=== PATIENT | male | born 1970 | race Caucasian/White ===

== ENCOUNTER 2024-01-27 21:56 | Observation (INO) | payer OTHER, SELFPAY ==
[2024-01-27 22:03] VITALS: BP 178/117; PULSE 88; RESP 22; TEMP 36.2; O2SAT 97; BMI 29.5
[2024-01-27 22:08] VITALS: PULSE 86; O2SAT 96
[2024-01-27 22:26] LABS: Add Manual Diff / Slide Review NO; Basophils Absolute Auto 100 /uL (0-100); Eosinophils Absolute Auto 200 /uL (0-450); Hematocrit 46.3 % (41-53); Hemoglobin 15.8 g/dL (13.5-17.5); Lymphocytes Absolute Auto 3500 /uL (1100-4500); Lymphocytes Percent Auto 37.4 % (25-40); Mean Corpuscular HGB Conc 34.2 % (30-36); Mean Corpuscular Hemoglobin 29.5 PG (26-34); Mean Corpuscular Volume 86.3 fL (80-100); Monocytes Absolute Auto 400 /uL (0-900); Monocytes Percent Auto 3.8 % (3-14); Neutrophils Absolute Auto 5200 /uL (1500-7000); Neutrophils Percent Auto 55.8 % (50-75); Platelet Count 262 X10^3/uL (150-400); Red Blood Cell Count 5.36 X10^6/uL (4.5-5.9); Red Cell Distribution Width 14.3 % (11.6-14.8); White Blood Cell Count 9.4 X10^3/uL (4.5-11.0)
[2024-01-27 22:30] VITALS: PULSE 83; RESP 18; O2SAT 97
[2024-01-27 22:30] LABS: Alanine Aminotransferase 69 IU/L (<50); Albumin Globulin Ratio 1.4 (1.0-2.8); Alkaline Phosphatase 90 U/L (38-126); Aspartate Aminotransferase 102 IU/L (17-59); BUN Creatinine Ratio 21.6 (6-22); Bilirubin Total 0.8 mg/dL (0.2-1.3); Blood Urea Nitrogen 24 mg/dL (9-20); Calcium 9.7 mg/dL (8.4-10.2); Carbon Dioxide 24 mmol/L (22-32); Chloride 108 mmol/L (98-107); Estimated Glomerular Filt Rate > 60 mL/min (>60); Globulin 3.5 g/dL (1.7-4.1); Glucose 151 mg/dL (70-100); HEMOLYSIS 17 (0-50); Lipase 96 U/L (23-300); Potassium 4.5 mmol/L (3.4-5.1); Sodium 140 mmol/L (137-145); Total Protein 8.5 g/dL (6.3-8.2)
--- NOTE | 2024-01-27 22:43 | ED.GENADULT ---
HPI - General Adult General Chief complaint: Abdominal Pain Stated complaint: jonna ku attack Time Seen by Provider: 01/27/24 22:43 Source: patient Mode of arrival: Ambulatory History of Present Illness HPI narrative: 53-year-old gentleman with no significant medical history presents with severe right upper quadrant pain. He notes over the last week he has had a couple of episodes of similar right upper quadrant pain lasting for only a few minutes and resolving. This evening, around 8:00 p.m. they went out for yogurt shortly thereafter he began developing right upper abdominal pain that is progressively gotten worse. Associated with an episode of vomiting. He has not recently had fevers, chest pain, headaches, palpitations, diarrhea. Related Data Home Medications Medication Instructions Recorded Confirmed aspirin 81 mg tablet,delayed ##0 10/10/17 12/29/23 release naproxen 500 mg tablet (Naprosyn) ##0 10/10/17 12/29/23 Previous Rx's Medication Instructions Recorded hydrocodone 5 mg-acetaminophen 325 1 tab PO Q6HP PRN #10 tabs 10/10/17 mg tablet ([place]) ondansetron 4 mg disintegrating 4 mg sublingual Q6HP PRN ##10 10/10/17 tablet (Zofran ODT) Allergies Allergy/AdvReac Type Severity Reaction Status Date / Time No Known Drug Allergies Allergy Unverified 12/29/23 12:01 Review of Systems Review of Systems Narrative: Pertinent positive and negative findings as per HPI Patient History Social History Smoking Status: Unknown if ever smoked Smoking Status: Unknown if ever smoked alcohol intake frequency: holidays/special occasions only Substance Use Type: does not use Exam Initial Vital Signs Initial Vital Signs: Vital Signs Temperature 97.1 F L 01/27/24 22:03 Pulse Rate 88 01/27/24 22:03 Respiratory Rate 22 01/27/24 22:03 Blood Pressure 178/117 H 01/27/24 22:03 Pulse Oximetry 97 01/27/24 22:03 Oxygen Delivery Method Room Air 01/27/24 22:03 General: Appears uncomfortable but Able to give a complete and coherent history. Well-nourished well-developed HEENT: Moist mucous membranes, normal sclera with reactive pupils, Respiratory: Lungs are clear to auscultation, no wheezing no rales no rhonchi. Full and symmetrical air movement Cardiac: Regular rate and rhythm no murmurs no bruits Abdomen: Soft, tenderness in the right upper quadrant without rebound or guarding. No flank pain. Skin: Warm and dry, no rashes Neurologic: Grossly neurologically intact with no obvious asymmetries or abnormalities Extremities: No trauma, well perfused Psych: Cooperative, appropriate insight and affect Course Orders Ordered: ED Orders 01/27/24 22:05 EKG-12 Lead Stat 01/27/24 22:09 Complete Blood Count AUTO DIFF Stat Comprehensive Metabolic Panel Stat Lipase Stat 01/27/24 22:44 US abdomen limited Stat Ondansetron HCl (Ondansetron 4 Mg Odt) 4 mg PO NOW PRN PRN Reason: Nausea And Vomiting Ondansetron HCl (Ondansetron 4 Mg/2 Ml Inj) 4 mg IV NOW PRN PRN Reason: Nausea And Vomiting Vital Signs Vital signs: Vital Signs - 8 hr 01/27/24 22:03 01/27/24 22:08 01/27/24 22:30 Temperature 97.1 F L Pulse Rate 88 86 83 Respiratory Rate 22 18 Blood Pressure 178/117 H Pulse Oximetry 97 96 97 Oxygen Delivery Method Room Air Medical Decision Making Lab Data 01/27/24 22:09 01/27/24 22:09 Labs: Lab Results 01/27/24 Range/Units 22:09 WBC 9.4 (4.5-11.0) X10^3/uL RBC 5.36 (4.5-5.9) X10^6/uL Hgb 15.8 (13.5-17.5) g/dL Hct 46.3 (41-53) % MCV 86.3 (80-100) fL MCH 29.5 (26-34) PG MCHC 34.2 (30-36) % RDW 14.3 (11.6-14.8) % Plt Count 262 (150-400) X10^3/uL Neut % (Auto) 55.8 (50-75) % Lymph % (Auto) 37.4 (25-40) % [place] % (Auto) 3.8 (3-14) % Eos % (Auto) 2.0 (2-4) % Baso % (Auto) 1.0 (0-2) % Neut # (Auto) 5200 (7338-5959) /uL Lymph # (Auto) 3500 (7586-0524) /uL [place] # (Auto) 400 (0-900) /uL Eos # (Auto) 200 (0-450) /uL Baso # (Auto) 100 (0-100) /uL Sodium 140 (137-145) mmol/L Potassium 4.5 (3.4-5.1) mmol/L Chloride 108 H (98-107) mmol/L Carbon Dioxide 24 (22-32) mmol/L BUN 24 H (9-20) mg/dL Creatinine 1.11 (0.66-1.25) mg/dL Estimated GFR > 60 (>60) mL/min BUN/Creatinine Ratio 21.6 (6-22) Glucose 151 H (70-100) mg/dL Calcium 9.7 (8.4-10.2) mg/dL Total Bilirubin 0.8 (0.2-1.3) mg/dL AST 102 H (17-59) IU/L ALT 69 H (<50) IU/L Alkaline Phosphatase 90 (38-126) U/L Total Protein 8.5 H (6.3-8.2) g/dL Albumin 5.0 (3.5-5.0) g/dL Globulin 3.5 (1.7-4.1) g/dL Albumin/Globulin Ratio 1.4 (1.0-2.8) Lipase 96 (23-300) U/L Urine Dip Bedside Urine Glucose Negative Bedside Urine Bilirubin - Negative Bedside Urine Ketone - Negative Urine Specific [place] 1.03 Bedside Urine Occult Blood - Negative Bedside Urine pH 5.5 Bedside Urine Protein - Negative Bedside Urine Urobilinogen - Negative Bedside Urine Nitrite - Negative Bedside Urine Leukocytes - Negative Esterase Point of care testing: Urine Dip Bedside Urine Glucose Negative Bedside Urine Bilirubin - Negative Bedside Urine Ketone - Negative Urine Specific [place] 1.03 Bedside Urine Occult Blood - Negative Bedside Urine pH 5.5 Bedside Urine Protein - Negative Bedside Urine Urobilinogen - Negative Bedside Urine Nitrite - Negative Bedside Urine Leukocytes - Negative Esterase MDM Narrative Medical decision making narrative: CC: Right upper quadrant pain since 8:00 p.m. tonight Complicating co-morbidities: No diagnosed medical issues Data collected from: patient, Social determinants of health that may influence the patients condition: Currently trying to establish care with a primary care physician Differential considered: Gallstones, cholecystitis, pancreatitis, gastritis, duodenal ulcer Exam documented above, pertinent findings include: Right upper quadrant tenderness without rebound or guarding Lab Test results independently reviewed as above. Pertinent findings: CBC is unremarkable, no leukocytosis nor anemia Chemistries are relatively reassuring. Glucose slightly elevated 151. Mild elevation to AST at 102, ALT at 69. No prior labs are available for comparison. Bilirubin and alk-phos are within normal limits Independently reviewed EKG: Sinus rhythm at a rate of 88. No acute ischemic changes. Normal intervals, normal axis Imaging studies independently reviewed: Abdominal ultrasound preliminary report indicates 3 gallstones wedged in the gallbladder neck without thickened gallbladder wall or cholecystic fluid. Ducts are not dilated Consultations: Discussion with Dr. Todd, general surgery Treatments: Fluids, Dilaudid, Zofran. No evidence of infection at this time. Antibiotics are not initiated Discussion: 53-year-old gentleman with progressive gallbladder colic over the course of the week now with impacted gallstones in the neck of the gallbladder without acute cholecystitis but with increasing pain. We will be admitted to Dr. Todd's service with anticipation of surgical intervention in the morning. Findings reviewed with the patient, questions are answered, he is safe for transfer to the floor Discharge Plan Departure Patient Disposition: Home Clinical Impression: Impacted gallstone of gallbladder Admit Date/Time: 01/28/24 00:06 Admit Provider: Leslie Todd
--- NOTE | 2024-01-27 22:44 | DI.US.S_ITS ---
PROCEDURE: US ABDOMEN LIMITED INDICATIONS: RUQ pain, ? cholycystitis TECHNIQUE: Real-time scanning was performed of the abdominal and retroperitoneal organs, with image documentation. COMPARISON: None. FINDINGS: Liver: Measures 19.7 cm in length. Increased in echogenicity. Gallbladder: Not significantly dilated. Multiple gallstones near the neck. A larger stone measuring 1 cm. Normal gallbladder wall thickness measuring 2 mm. No pericholecystic fluid. Positive sonographic Herrera's sign reported. Biliary ducts: Intrahepatic bile ducts are non-dilated. Common hepatic duct measures 5 mm. CBD is not well seen. Normal is 6-7 mm or less in diameter, or 10 mm or less post-cholecystectomy. Pancreas: Not well seen due to overlying bowel gas. IMPRESSION: 1. Positive sonographic Herrera's sign reported. Multiple gallstones. However, no pericholecystic fluid or gallbladder wall thickening is demonstrated. Findings indeterminate for acute cholecystitis. CT or HIDA scan could be considered for further evaluation. 2. Increased hepatic echogenicity most consistent with hepatic steatosis. Other forms of hepatocellular disease could have similar appearance. Prominent liver size. Dictated by: Cristino Bunn M.D. on 01/28/2024 at 0:46 Approved by: Cristino Bunn M.D. on 01/28/2024 at 0:48
[2024-01-27 23:00] VITALS: PULSE 77; RESP 20; O2SAT 96
[2024-01-27 23:30] VITALS: PULSE 74; RESP 22; O2SAT 97
[2024-01-28] VITALS (14 sets, daily range): BP systolic 120–160; BP diastolic 78–105; PULSE 64–97; RESP 14–88; TEMP 35.9–36.7; O2SAT 91–97; BMI 29.5; BMI 30.2
--- NOTE | 2024-01-28 | PATH_ITS ---
[facility] Accession Number: [id number] No. of containers..01 Tissue . 01 Material submitted: . gallbladder - GALLBLADDER . 01 Diagnosis: GALLBLADDER, CHOLECYSTECTOMY: Acute on chronic cholecystitis and cholelithiasis. [facility] 02/06/2024 1122 Local . 01 Electronically signed: . Neetu Waldrop MD, Pathologist NPI- [id number] . 01 Gross description: . Received in formalin with two identifiers and gallbladder, is a disrupted gallbladder, 7.4 x 2.9 x 2.0 cm, with a johnson, unremarkable external surface and a full thickness defect on the neck of the specimen measuring 1.5 cm in greatest dimension. No pericystic lymph node is identified, and the cystic duct margin is inked blue. The lumen contains a small amount of pale green mucoid bile, and four green to brown, roughened calculi are identified in the container ranging from 1.3 to 1.9 cm in greatest dimension. The mucosa is johnson to brown, slightly roughened, with no polyps or lesions identified. The see average 0.2 cm thick. Radio Technician sections to include the cystic duct margin and full thickness sections are submitted in A1. ([id number]) /MRV 02/03/2024 1331 Local . 01 Pathologist provided ICD-10: K81.1, K80.10 . 01 CPT . 929594 Specimen Comment: A courtesy copy of this report has been sent to [phone] Performed at: [address] [facility] [address], [place], [place] [id number] MD Brenton Guerrero MD Phone: [phone]
[2024-01-28] MEDS: ACETAMINOPHEN 325 MG TABLET 650 MG PO ×3 (00:58→18:09)
[2024-01-28] MEDS: LACTATED RINGERS 1,000 ML 100 ML IV ×3 (00:58→21:20)
[2024-01-28] MEDS: SCOPOLAMINE 1 PATCH TOP (00:59)
[2024-01-28] MEDS: IBUPROFEN 600 MG TABLET PO ×3 (00:59→18:09)
[2024-01-28] MEDS: HYDROMORPHONE 0.5 MG INJ IV (11:20)
--- NOTE | 2024-01-28 12:24 | PM.HP.1 ---
History of Present Illness History of Present Illness Date Patient Seen: 01/28/24 Time Patient Seen: 12:24 Chief complaint: thinks gallblader attack Narrative: Saleem is a 53-year-old man who presented with several days of right upper quadrant pain. He had an ultrasound in the ER which showed gallstones without significant inflammation. He has essentially normal liver enzymes. [facility] Social History household members: spouse Smoking Status: Never smoker alcohol intake: current Meds Home Medications and Allergies Home Medications Medication Instructions Recorded Confirmed Type hydrocodone 5 mg-acetaminophen 325 1 tab PO Q6HP PRN #10 tabs 10/10/17 01/28/24 Rx mg tablet ([place]) naproxen 500 mg tablet (Naprosyn) 400 mg DAILY ##0 10/10/17 01/28/24 History ondansetron 4 mg disintegrating 4 mg sublingual Q6HP PRN ##10 10/10/17 01/28/24 Rx tablet (Zofran ODT) Allergies Allergy/AdvReac Type Severity Reaction Status Date / Time No Known Drug Allergies Allergy Unverified 12/29/23 12:01 Exam Vital Signs (past 8 hours): - 01/28/24 06:00 01/28/24 09:43 01/28/24 12:17 Temperature 98.0 F 96.9 F L 97.5 F L Pulse Rate 76 67 65 Respiratory Rate 88 H 16 14 Blood Pressure 144/86 H 140/94 H 160/105 H Pulse Oximetry 96 97 97 Oxygen Delivery Method Room Air Oxygen Flow Rate 0 Oxygen Delivery Method Room Air Oxygen Flow Rate 0 Narrative Exam Narrative: No acute distress Tender to palpation in the right upper quadrant without henri Herrera sign Objective Labs 01/27/24 22:09 01/27/24 22:09 Labs: Laboratory Results - last 24 hr 01/27/24 22:09 WBC 9.4 RBC 5.36 Hgb 15.8 Hct 46.3 MCV 86.3 MCH 29.5 MCHC 34.2 RDW 14.3 Plt Count 262 Neut % (Auto) 55.8 Lymph % (Auto) 37.4 [place] % (Auto) 3.8 Eos % (Auto) 2.0 Baso % (Auto) 1.0 Neut # (Auto) 5200 Lymph # (Auto) 3500 [place] # (Auto) 400 Eos # (Auto) 200 Baso # (Auto) 100 Sodium 140 Potassium 4.5 Chloride 108 H Carbon Dioxide 24 BUN 24 H Creatinine 1.11 Estimated GFR > 60 BUN/Creatinine Ratio 21.6 Glucose 151 H Calcium 9.7 Total Bilirubin 0.8 AST 102 H ALT 69 H Alkaline Phosphatase 90 Total Protein 8.5 H Albumin 5.0 Globulin 3.5 Albumin/Globulin Ratio 1.4 Lipase 96 Assessment & Plan Assessment and plan (1) Cholelithiasis: Qualifiers: Cholelithiasis location: gallbladder Cholecystitis presence: without cholecystitis Biliary obstruction: without biliary obstruction Qualified Code(s): K80.20 - Calculus of gallbladder without cholecystitis without obstruction Status: Acute Plan We reviewed the risks and benefits of laparoscopic cholecystectomy for cholelithiasis and biliary colic and he would like to proceed. Quality VTE Deep Vein Thrombosis/Pulmonary Embolism Present on Admission: No
--- NOTE | 2024-01-28 12:29 | CM.DANOTE ---
Initial DCP Assessment Visit Note Reviewed EMR and team rounds for pt's medical status and updates. Pt was in surgery at the time of this assessment, so this RELIABILITY ENGINEER was unable to meet with him f/f at this time. Pt resides independently in his own home with spouse here in [place]. Spouse will transport him home once he's medically cleared for home d/c. No anticipated home d/c needs are anticipated at this time. Payor: [facility] Attending: Dr. Todd Pt is a 53 year-old M who presented to the ED last evening w/severe right upper quadrant pain and an episode of vomiting. Pt was started on IV fluids and pain meds only, no need for antibiotics due to no infection, per ED provider. Abd. imaging in the ED did show 3-impacted gallstones. Surgery was consulted, pt was made NPO, and he was brought to the floor for anticipated surgery for today, he's scheduled for 12:30pm OR. DCP will continue to monitor for any evolving d/c needs and recommendations. Discharge Planning/Care Management CM Discharge Assessment Start: 01/28/24 12:27 Freq: Status: Active Protocol: Document 01/28/24 12:27 DPL (Rec: 01/28/24 12:29 DPL [id number]) Discharge Planning Assessment Assigned Grocery Store Associate GANESH Deutsch Advance Directives? No History Provided By Medical Record Has Patient been admitted in last 30 No days? Prior Living Arrangements House Household Members spouse Type of transporation used prior to Drives own vehicle admit Independent with ADL's Yes Is patient alert and oriented? Yes Caregiver for Another No Discharge Plan Home Transportation Arrangement Spouse Referrals Initiated None needed Whiteboard Updated in Patient Room with Yes name and ext. # of Grocery Store Associate Review Status In Process Please Provide Date Initial DC 01/28/24 Assessment Was Performed
--- NOTE | 2024-01-28 12:39 | SUR.OPER ---
Supine on padded OR bed, head on pillow, arms secured on padded arm boards at <90 degrees abduction, legs uncrossed, safety belt at thigh, tape over blanket over lower legs.
[2024-01-28] MEDS: CEFAZOLIN 2 GM/100 ML PREMIX 100 ML IV (13:29)
[2024-01-28] MEDS: BUPIVACAINE 0.5% (PF) 30 ML, EPINEPHrine 0.15 MG INJ (13:32)
--- NOTE | 2024-01-28 14:23 | PM.OP.1 ---
Operative Date/Time/Diagnoses Date of procedure: 01/28/24 Time of procedure: 14:23 Pre-op diagnosis: Cholelithiasis Post-op diagnosis: same Procedure & Clinicians Procedure: Laparoscopic cholecystectomy Same procedure as scheduled: Yes Surgeon: Tomer Munoz Health Consultant: Luis Alfredo Puente Anesthesia Type: General Operative Notes Procedure in detail: The patient was given preoperative antibiotics. The patient was brought to the operating room and placed on the table in the supine position. General endotracheal anesthesia was induced. The abdomen was prepped and draped. A time-out was performed. We made a 1 cm infraumbilical incision. We dissected down to the base of the umbilical stalk using cautery. We grasped the umbilical stalk with a [place] clamp to elevate the abdominal wall. We scored the fascia in the midline with cautery. We pierced the peritoneum with a [place] clamp. The Mariella port was placed and the abdomen was insufflated to 15 mmHg. A 5 mm 30 degree laparoscopic was inserted. There was no evidence of any injury from the entry. Next, we placed 5 mm ports in the subxiphoid position and right upper quadrant at the midclavicular line and anterior axillary line. The patient was then positioned in reverse Trendelenburg and the table was tilted to the left. The gallbladder was grasped at the dome and retracted cephalad. There were adhesions of mesenteric fat to the all of the gallbladder that were taken with cautery and blunt dissection. We then dissected the cystic structures with a combination of hook cautery and blunt dissection. We obtained a critical view. We placed clips on the cystic duct and artery and divided the cystic duct and artery sharply between the clips. The gallbladder was then dissected off the liver and placed in a specimen retrieval bag. Several large gallstones were collected and placed in the second bag. We irrigated the right upper quadrant and all the aspirate returned clear. We then removed the 5 mm ports under direct vision, we remove the gallbladder and stones followed by the Mariella port. We then injected some local into the fascia and closed the fascia with 2 interrupted 0 Vicryl sutures. The skin incisions were closed with 4-0 Monocryl and Steri-Strips were applied. Band-Aids were applied over the Steri-Strips. EBL: 20 mL Specimen: Gallbladder and contents Luis Alfredo RENAE provided assistance with exposure, retraction and closure of incisions. Post-operative Condition: stable Disposition: PACU
[2024-01-28] MEDS: OXYCODONE IR 10 MG TABLET PO (16:09)
[2024-01-28] MEDS: OXYCODONE IR 5 MG TABLET PO (19:49)
[2024-01-28] MEDS: GABAPENTIN 300 MG CAPSULE PO (20:45)
[2024-01-29 00:35] VITALS: BP 113/71; PULSE 83; RESP 18; TEMP 37; O2SAT 93
[2024-01-29] MEDS: IBUPROFEN 600 MG TABLET PO ×2 (01:33→12:00)
[2024-01-29] MEDS: ACETAMINOPHEN 325 MG TABLET 650 MG PO ×2 (01:34→12:00)
[2024-01-29 06:05] VITALS: BP 118/76; PULSE 75; RESP 16; TEMP 36.8; O2SAT 92
[2024-01-29 08:45] VITALS: BP 124/84; PULSE 71; RESP 16; TEMP 36.7; O2SAT 94
[2024-01-29] MEDS: OXYCODONE IR 5 MG TABLET PO (08:48)
[2024-01-29] MEDS: GABAPENTIN 300 MG CAPSULE PO (08:48)
--- NOTE | 2024-01-29 12:49 | PM.DS.1 ---
History of Present Illness History of Present Illness Chief complaint: thinks gallblader attack Narrative: Saleem is a 53-year-old man who presented with several days of right upper quadrant pain. He had an ultrasound in the ER which showed gallstones without significant inflammation. He has essentially normal liver enzymes. Discharge Providers Provider Date of admission: 01/28/24 00:06 Discharge Date: 01/29/24 Primary care physician: Doctor Nithya MD Discharge provider: Tomer Munoz MD Summary Hospital Course Discharge Diagnosis: Acute cholecystitis Hospital Course: The patient had a laparoscopic cholecystectomy on 01/28/2024. Please see the operative note for details. He did well after surgery and was tolerating a diet on postoperative day 1. He was discharged home on postoperative day 1. Exam Vital Signs (past 8 hours): - 01/29/24 06:05 01/29/24 08:45 Temperature 98.3 F 98.0 F Pulse Rate 75 71 Respiratory Rate 16 16 Blood Pressure 118/76 124/84 Pulse Oximetry 92 94 Oxygen Flow Rate 0 0 Oxygen Delivery Method Room Air Oxygen Flow Rate 0 Objective Labs 01/27/24 22:09 01/27/24 22:09 [facility] Social History household members: spouse Smoking Status: Never smoker alcohol intake: current Discharge Plan Discharge Plan Patient Disposition: Home Provider Discharge Comment: No lifting greater than 20 lb for 2 weeks. Okay to remove the outer dressing and shower after 24 hours. Steri-Strips can get wet in the shower. Remove the Steri-Strips after 5-7 days. Discharge orders & Medications Prescriptions: New hydrocodone-acetaminophen 5-325 mg tablet 1 tab PO Q8H PRN (Reason: pain) Qty: 10 0RF Continued naproxen [Naprosyn] 500 MG tablet 400 mg DAILY Qty: 0 hydrocodone-acetaminophen [[place]] 5 MG/325 MG tablet 1 tab PO Q6HP PRNQty: 10 0RF Patient Comments: took for previous gallstones ondansetron [Zofran ODT] 4 MG tablet,disintegrating 4 mg Sublingual Q6HP PRNQty: 10 0RF Follow up/Referrals: Doctor Barriga MD [Primary Care Provider] - Visit Report/Discharge Packet Stand Alone Forms: Patient Portal/API, Stroke Signs & Symptoms Discharge Data Primary Care Provider: Miscellaneous,Doctor Attending Provider: Leslie Todd Admit Date/Time: 01/28/24 00:06 Quality VTE Deep Vein Thrombosis/Pulmonary Embolism Present on Admission: No
== END 2024-01-29 13:24 | disposition home or self-care (01) ==
LOC: ED 22:43 → AC 01-28 00:06
PROVIDERS: Surgery; Admitting Provider Surgery; Emergency Provider Emergency Medicine; Referring Provider Emergency Medicine; Visit Provider Surgery
PROC: 0FT44ZZ Resection of Gallbladder, Percutaneous Endoscopic Approach (ICD-10-PCS; CPT 47562; principal; 2024-01-28 12:00)
DX: K80.20 Calculus of gallbladder without cholecystitis without obstruction (principal)
CPT/HCPCS: 47562; 36415; 76705; 80053; 81003; 83690; 85025; 93005; 93010; 96374; 99221; 99283; 99284; G0378; J0171; J0690; J1100; J1170; J1885; J2250; J2405; J2704; J3010

== ENCOUNTER 2024-02-06 11:23 | Emergency (ER) | payer OTHER, SELFPAY ==
[2024-01-28 01:09] VITALS: BMI 29.5
[2024-02-06 11:25] VITALS: BP 202/112; PULSE 70; RESP 14; TEMP 36.4; O2SAT 98; BMI 29.5
[2024-02-06 11:28] VITALS: O2SAT 98
[2024-02-06 11:29] VITALS: BP 202/112; PULSE 68; O2SAT 98
[2024-02-06 11:30] VITALS: BP 178/110; PULSE 67; O2SAT 99
[2024-02-06 12:00] VITALS: PULSE 75; O2SAT 96
[2024-02-06 12:01] VITALS: BP 163/106; PULSE 77; O2SAT 97
--- NOTE | 2024-02-06 12:11 | ED.SKABFB ---
HPI - Skin/Abscess/Foreign Bdy General Chief complaint: Skin/Abscess/Foreign Body Stated complaint: rash post op Time Seen by Provider: 02/06/24 12:11 Source: patient Mode of arrival: Ambulatory Limitations: no limitations History of Present Illness HPI narrative: Patient 53-year-old male with recent cholecystectomy on January 27 presenting today with rash all over body. Reports that he is eating and drinking normally passing gas having regular bowel movements. He has been hot and cold at times no documented fever. No painful frequent urination. that if he was having reaction to the Steri-Strips. He definitely has more spots where the Band-Aids were. No difficulty breathing no other symptoms. They report that daughter has severe reaction to like the chlorhexidine scrub so they are concerned that it maybe this. He certainly has noted swelling tongue swelling or difficulty breathing or speaking. Related Data Home Medications Medication Instructions Recorded Confirmed naproxen 500 mg tablet (Naprosyn) 400 mg DAILY ##0 10/10/17 01/28/24 Previous Rx's Medication Instructions Recorded hydrocodone 5 mg-acetaminophen 325 1 tab PO Q6HP PRN #10 tabs 10/10/17 mg tablet ([place]) ondansetron 4 mg disintegrating 4 mg sublingual Q6HP PRN ##10 10/10/17 tablet (Zofran ODT) hydrocodone 5 mg-acetaminophen 325 1 tab PO Q8H PRN pain #10 tabs 01/29/24 mg tablet dexamethasone 4 mg tablet 4 mg PO DAILY #4 tabs 02/06/24 Allergies Allergy/AdvReac Type Severity Reaction Status Date / Time No Known Drug Allergies Allergy Verified 02/06/24 11:30 Patient History Social History household members: spouse Smoking Status: Never smoker alcohol intake: current Smoking Status: Never smoker alcohol intake frequency: holidays/special occasions only Substance Use Type: does not use Exam Initial Vital Signs Initial Vital Signs: Vital Signs Temperature 97.6 F 02/06/24 11:25 Pulse Rate 70 02/06/24 11:25 Respiratory Rate 14 02/06/24 11:25 Blood Pressure 202/112 H 02/06/24 11:25 Pulse Oximetry 98 02/06/24 11:25 Oxygen Delivery Method Room Air 02/06/24 11:25 GENERAL: Alert pleasant well-appearing 53-year-old and in no acute distress. HEENT: Head atraumatic,EOMI, pupils reactive, face symmetric, moist mucous membranes CARDIOVASCULAR: Regular rate and rhythm without murmurs, rubs or gallops. RESPIRATORY: Breath sounds equal bilaterally, no wheezes rales or rhonchi. No stridor ABDOMEN: Soft, nontender. Normoactive bowel sounds all 4 quadrants. No guarding or rebound. EXTREMITIES: Normal range of motion, no clubbing or edema. Neurovascularly intact NEUROLOGICAL: Alert and oriented x4. SKIN: Urticaria on abdomen more on abdomen then back. Also can to fully see where Band-Aids were seems to be more aggravated by Band-Aids and Steri-Strips. Incisions themselves are non erythematous draining or oozing Course Orders Ordered: Discontinued Medications Dexamethasone (Dexamethasone 10 Mg/Ml Vial) 10 mg PO NOW ONE Stop: 02/06/24 12:19 Last Admin: 02/06/24 12:24 Dose: 10 mg Documented By: Vital Signs Vital signs: Vital Signs - 8 hr 02/06/24 11:25 02/06/24 11:28 02/06/24 11:29 Temperature 97.6 F Pulse Rate 70 Respiratory Rate 14 Blood Pressure 202/112 H 202/112 H Pulse Oximetry 98 98 Oxygen Delivery Method Room Air 02/06/24 11:29 02/06/24 11:30 02/06/24 11:30 Temperature Pulse Rate 68 67 Respiratory Rate Blood Pressure 178/110 H Pulse Oximetry 98 99 Oxygen Delivery Method 02/06/24 12:00 02/06/24 12:01 02/06/24 12:01 Temperature Pulse Rate 75 77 Respiratory Rate Blood Pressure 163/106 H Pulse Oximetry 96 97 Oxygen Delivery Method MDM - Skin/Abscess/Foreign Bdy MDM Narrative Medical decision making narrative: Patient 53-year-old male had surgery 10 days ago presenting today with rash all over abdomen which has progressed over the last couple of days. He has no evidence of anaphylaxis. I do not think that this is cellulitis. Looks more like a contact dermatitis definitely areas that are worse than others was adhesive. Concern for possible he says allergy. No concern for surgical complication is abdomen is soft nontender having bowel movements no nausea or vomiting. No evidence of infection at incision sites Patient reports that he becomes very angry on prednisone would prefer dexamethasone. Discharge Plan Departure Patient Disposition: Home Clinical Impression: Contact dermatitis Instructions: DI for Atopic Dermatitis-Adult Activity Restrictions/Additional Instructions: *You have been diagnosed with contact dermatitis *What to do: At this time I do think this is an allergic reaction to adhesive. Hopefully that is gets better for you. Please continue to monitor. *Continue to take medications as directed Dexamethasone 4 mg for 5 days (start tomorrow you got your 1st dose in the ED) Benadryl 25-50 mg every 6 hours if needed for severe itching *Follow up with your primary care provider in 2-3 days or call [phone] *Return to ER if you should have fever abdominal pain vomiting difficulty breathing tongue swelling lip swelling or any new, worsening or concerning symptoms Prescriptions: New dexamethasone 4 mg tablet 4 mg PO DAILY Qty: 4 0RF No Action naproxen [Naprosyn] 500 MG tablet 400 mg DAILY Qty: 0 hydrocodone-acetaminophen [[place]] 5 MG/325 MG tablet 1 tab PO Q6HP PRNQty: 10 0RF Patient Comments: took for previous gallstones ondansetron [Zofran ODT] 4 MG tablet,disintegrating 4 mg Sublingual Q6HP PRNQty: 10 0RF hydrocodone-acetaminophen 5-325 mg tablet 1 tab PO Q8H PRN (Reason: pain) Qty: 10 0RF Referrals: Miscellaneous,Doctor, MD [Primary Care Provider] - Stand Alone Forms: Patient Portal/API
[2024-02-06] MEDS: DEXAMETHASONE 10 MG/ML VIAL PO (12:24)
== END 2024-02-06 12:34 | disposition home or self-care (01) ==
PROVIDERS: Emergency Provider Emergency Medicine
DX: L25.9 Unspecified contact dermatitis, unspecified cause (principal)
CPT/HCPCS: 99283; J1100

== ENCOUNTER 2024-02-16 15:25 | Emergency (ER) | payer OTHER, SELFPAY ==
[2024-01-28 01:09] VITALS: BMI 29.5
[2024-02-16] VITALS (7 sets, daily range): BP systolic 143–166; BP diastolic 83–108; PULSE 71–82; RESP 17; TEMP 36.3; O2SAT 95–100; BMI 29.5
[2024-02-16] MEDS: ONDANSETRON 4 MG/2 ML INJ IV (16:49)
[2024-02-16 17:00] LABS: Add Manual Diff / Slide Review NO; Basophils Absolute Auto 100 /uL (0-100); Basophils Percent Auto 1.4 % (0-2); Eosinophils Absolute Auto 200 /uL (0-450); Eosinophils Percent Auto 3.1 % (2-4); Hematocrit 45.1 % (41-53); Hemoglobin 15.3 g/dL (13.5-17.5); Lymphocytes Absolute Auto 2400 /uL (1100-4500); Lymphocytes Percent Auto 30.7 % (25-40); Mean Corpuscular Hemoglobin 29.6 PG (26-34); Mean Corpuscular Volume 87.1 fL (80-100); Monocytes Absolute Auto 600 /uL (0-900); Monocytes Percent Auto 8.2 % (3-14); Neutrophils Absolute Auto 4500 /uL (1500-7000); Neutrophils Percent Auto 56.6 % (50-75); Platelet Count 292 X10^3/uL (150-400); Red Blood Cell Count 5.17 X10^6/uL (4.5-5.9); Red Cell Distribution Width 14.3 % (11.6-14.8); White Blood Cell Count 7.9 X10^3/uL (4.5-11.0)
[2024-02-16 17:13] LABS: Alanine Aminotransferase 31 IU/L (<50); Albumin 4.6 g/dL (3.5-5.0); Albumin Globulin Ratio 1.4 (1.0-2.8); Alkaline Phosphatase 84 U/L (38-126); Aspartate Aminotransferase 23 IU/L (17-59); BUN Creatinine Ratio 14.9 (6-22); Bilirubin Total 0.6 mg/dL (0.2-1.3); Blood Urea Nitrogen 17 mg/dL (9-20); Carbon Dioxide 29 mmol/L (22-32); Chloride 109 mmol/L (98-107); Estimated Glomerular Filt Rate > 60 mL/min (>60); Globulin 3.2 g/dL (1.7-4.1); Glucose 111 mg/dL (70-100); HEMOLYSIS < 15 (0-50); Lipase 67 U/L (23-300); Potassium 4.7 mmol/L (3.4-5.1); Sodium 142 mmol/L (137-145); Total Protein 7.8 g/dL (6.3-8.2)
--- NOTE | 2024-02-16 19:51 | ED.NAVMDI ---
HPI - Nausea/Vomiting/Diarrhea General Chief complaint: Nausea/Vomiting/Diarrhea Stated complaint: POST OP VOMITTING, DIZZY, Time Seen by Provider: 02/16/24 18:09 Source: patient Mode of arrival: Ambulatory History of Present Illness HPI Narrative: Patient is a 53-year-old male who several weeks ago underwent a laparoscopic cholecystectomy. His symptoms have been improving although he has had some persistent abdominal discomfort. He is here today because earlier in the day he developed an episode of dizziness with upon further evaluation appears to be a vertigo sensation. This then led to him vomiting. He now have some abdominal discomfort. Although his states that over the past couple days he has been ?overdoing it? at home with picking things up and moving stuff around the house. He denies any urinary symptoms. No change in bowel habits. No fevers. No chest pain or shortness of breath. He reports that his symptoms have improved tremendously since the onset. He thought that the symptoms (the vertigo) were positional. He thought that when he turned his head to the right the symptoms were worsened and when he held his head still and look forward symptoms were somewhat better. Related Data Home Medications Medication Instructions Recorded Confirmed naproxen 500 mg tablet (Naprosyn) 400 mg DAILY ##0 10/10/17 02/11/24 Previous Rx's Medication Instructions Recorded hydrocodone 5 mg-acetaminophen 325 1 tab PO Q6HP PRN #10 tabs 10/10/17 mg tablet ([place]) ondansetron 4 mg disintegrating 4 mg sublingual Q6HP PRN ##10 10/10/17 tablet (Zofran ODT) dexamethasone 4 mg tablet 4 mg PO DAILY #4 tabs 02/06/24 meclizine 25 mg tablet 25 mg PO BID PRN dizziness #20 tabs 02/16/24 Allergies Allergy/AdvReac Type Severity Reaction Status Date / Time No Known Drug Allergies Allergy Verified 02/16/24 15:47 Review of Systems Review of Systems Narrative: See HPI Patient History Surgical History Hx laparoscopic cholecystectomy Social History household members: spouse Smoking Status: Never smoker alcohol intake: current Smoking Status: Never smoker alcohol intake frequency: holidays/special occasions only Substance Use Type: does not use Exam Initial Vital Signs Initial Vital Signs: Vital Signs Temperature 97.4 F L 02/16/24 15:47 Pulse Rate 82 02/16/24 15:47 Respiratory Rate 17 02/16/24 15:47 Blood Pressure 166/108 H 02/16/24 15:47 Pulse Oximetry 95 02/16/24 15:47 Oxygen Delivery Method Room Air 02/16/24 15:47 Const General: cooperative, comfortable and No ill appearing [facility] Head: normal to inspection and normocephalic Eyes General: Yes appearance normal, both eyes and all related structures Resp Effort & Inspection: normal respiratory effort Auscultation: clear to auscultation bilaterally Cardio Rate: regular rate Rhythm: regular rhythm GI Inspection: normal to inspection and non-distended Palpation: soft, No firm, No guarding and No tender Skin Other: Surgical incision sites appear well without signs of infection or dehiscence Neuro General: patient alert, patient awake, patient oriented x3 and moves all extremities Cognition: normal cognition Speech: speech normal Extrem General: capillary refill normal Course Orders Ordered: Discontinued Medications Sodium Chloride (Normal Saline 0.9%) 1,000 mls @ 1,000 mls/hr IV BOLUS ONE Stop: 02/16/24 20:50 Last Infusion: 02/16/24 20:30 Dose: Infused Documented By: Admin: 02/16/24 19:58 Dose: 1,000 mls/hr Documented By: ARTUR Meclizine HCl (Meclizine Hcl 12.5 Mg Tablet) 25 mg PO NOW ONE Stop: 02/16/24 19:52 Last Admin: 02/16/24 19:59 Dose: 25 mg Documented By: ARTUR Ondansetron HCl (Ondansetron 4 Mg Odt) 4 mg PO NOW PRN PRN Reason: Nausea And Vomiting Ondansetron HCl (Ondansetron 4 Mg/2 Ml Inj) 4 mg IV NOW PRN PRN Reason: Nausea And Vomiting Last Admin: 02/16/24 16:49 Dose: 4 mg Documented By: REINALDO Vital Signs Vital signs: Vital Signs - 8 hr 02/16/24 19:03 02/16/24 19:04 02/16/24 19:04 Pulse Rate 76 Blood Pressure 143/101 H Pulse Oximetry 96 97 02/16/24 19:30 02/16/24 19:30 02/16/24 20:00 Pulse Rate 72 71 Blood Pressure 146/83 H Pulse Oximetry 97 97 02/16/24 20:00 02/16/24 20:30 02/16/24 20:30 Pulse Rate 79 Blood Pressure 157/101 H 149/91 H Pulse Oximetry 100 02/16/24 21:00 02/16/24 21:00 Pulse Rate 77 Blood Pressure 146/89 H Pulse Oximetry 98 MDM - Nausea/Vomiting/Diarrhea Lab Data Attestation: I reviewed the patient's lab results. 02/16/24 16:50 02/16/24 16:50 Labs: Lab Results 02/16/24 Range/Units 16:50 WBC 7.9 (4.5-11.0) X10^3/uL RBC 5.17 (4.5-5.9) X10^6/uL Hgb 15.3 (13.5-17.5) g/dL Hct 45.1 (41-53) % MCV 87.1 (80-100) fL MCH 29.6 (26-34) PG MCHC 34.0 (30-36) % RDW 14.3 (11.6-14.8) % Plt Count 292 (150-400) X10^3/uL Neut % (Auto) 56.6 (50-75) % Lymph % (Auto) 30.7 (25-40) % [place] % (Auto) 8.2 (3-14) % Eos % (Auto) 3.1 (2-4) % Baso % (Auto) 1.4 (0-2) % Neut # (Auto) 4500 (9297-6834) /uL Lymph # (Auto) 2400 (2578-8882) /uL [place] # (Auto) 600 (0-900) /uL Eos # (Auto) 200 (0-450) /uL Baso # (Auto) 100 (0-100) /uL Sodium 142 (137-145) mmol/L Potassium 4.7 (3.4-5.1) mmol/L Chloride 109 H (98-107) mmol/L Carbon Dioxide 29 (22-32) mmol/L BUN 17 (9-20) mg/dL Creatinine 1.14 (0.66-1.25) mg/dL Estimated GFR > 60 (>60) mL/min BUN/Creatinine Ratio 14.9 (6-22) Glucose 111 H (70-100) mg/dL Calcium 9.0 (8.4-10.2) mg/dL Total Bilirubin 0.6 (0.2-1.3) mg/dL AST 23 (17-59) IU/L ALT 31 (<50) IU/L Alkaline Phosphatase 84 (38-126) U/L Total Protein 7.8 (6.3-8.2) g/dL Albumin 4.6 (3.5-5.0) g/dL Globulin 3.2 (1.7-4.1) g/dL Albumin/Globulin Ratio 1.4 (1.0-2.8) Lipase 67 (23-300) U/L ECG Data Attestation: I personally reviewed and interpreted this ECG as follows: Interpretation: Sinus rhythm Ventricular rate is [address] T wave changes MDM Narrative Medical decision making narrative: After fluids and meclizine patient's symptoms are now almost completely resolved. He was a benign exam. Benign abdominal exam. A unremarkable neurologic exam. Ambulated to the bathroom and tolerated oral intake. We will hold on further radiologic studies of his abdomen today is that you have a low suspicion for an acute postoperative complication although he was instructed that if his symptoms were to worsen that he should return to the emergency department. His vertigo is most consistent with a peripheral vertigo given the positional nature of what he describes. I do feel that we can hold on neurologic imaging today. He was given return precautions. He expressed understanding and agreement with plan. Discharge Plan Departure Patient Disposition: Home Clinical Impression: Vertigo, Abdominal pain Instructions: DI for Vertigo Activity Restrictions/Additional Instructions: Continue to follow all of the postoperative instructions given to you by the general surgeon. Continue to take all of your medications as directed. Contact your primary doctor for follow-up. Return to the emergency department for new or worsening symptoms. Prescriptions: New meclizine 25 mg tablet 25 mg PO BID PRN (Reason: dizziness) Qty: 20 0RF No Action naproxen [Naprosyn] 500 MG tablet 400 mg DAILY Qty: 0 hydrocodone-acetaminophen [[place]] 5 MG/325 MG tablet 1 tab PO Q6HP PRNQty: 10 0RF Patient Comments: took for previous gallstones ondansetron [Zofran ODT] 4 MG tablet,disintegrating 4 mg Sublingual Q6HP PRNQty: 10 0RF dexamethasone 4 mg tablet 4 mg PO DAILY Qty: 4 0RF Referrals: Miscellaneous,Doctor, MD [Primary Care Provider] - Stand Alone Forms: Patient Portal/API
[2024-02-16] MEDS: SODIUM CHLORIDE 0.9% 1,000 ML 1000 ML IV (19:58)
[2024-02-16] MEDS: MECLIZINE HCL 12.5 MG TABLET 25 MG PO (19:59)
== END 2024-02-16 21:20 | disposition home or self-care (01) ==
PROVIDERS: Emergency Medicine; Emergency Provider Emergency Medicine
DX: R42 Dizziness and giddiness (principal); R10.9 Unspecified abdominal pain; R03.0 Elevated blood-pressure reading, without diagnosis of hypertension
CPT/HCPCS: 80053; 83690; 85025; 93005; 96374; 99284; J2405

== ENCOUNTER 2024-06-17 06:43 | Day surgery (SDC) | payer OTHER, SELFPAY ==
[2024-01-28 01:09] VITALS: BMI 29.5
[2024-06-17] MEDS: LACTATED RINGERS 1,000 ML 42 ML IV (07:17)
[2024-06-17 07:18] VITALS: BP 147/93; PULSE 114; RESP 16; TEMP 36.2; O2SAT 95
--- NOTE | 2024-06-17 07:44 | P.HP_ITS ---
History of Present Illness History of Present Illness Date Patient Seen: 06/17/24 Time Patient Seen: 07:44 Chief complaint: SDC Narrative: Jessee is a 53-year-old man here for a screening colonoscopy. He has never had 1 before. No family history of colon cancer. He did have his gallbladder out in January. [facility] Surgical History Hx laparoscopic cholecystectomy Social History household members: spouse Smoking Status: Never smoker alcohol intake: current Meds Home Medications and Allergies Home Medications Medication Instructions Recorded Confirmed Type ondansetron 4 mg disintegrating 4 mg sublingual Q6HP PRN ##10 10/10/17 02/11/24 Rx tablet (Zofran ODT) dexamethasone 4 mg tablet 4 mg PO DAILY #4 tabs 02/06/24 02/11/24 Rx meclizine 25 mg tablet 25 mg PO BID PRN dizziness #20 tabs 02/16/24 06/17/24 Rx losartan 50 mg tablet 50 mg PO DAILY 06/17/24 06/17/24 History Allergies Allergy/AdvReac Type Severity Reaction Status Date / Time No Known Drug Allergies Allergy Verified 06/17/24 07:10 Exam Vital Signs (past 8 hours): - 06/17/24 07:18 Temperature 97.1 F L Pulse Rate 114 H Respiratory Rate 16 Blood Pressure 147/93 H Pulse Oximetry 95 Oxygen Delivery Method Room Air Oxygen Delivery Method Room Air Const General: No acute distress Resp Effort & Inspection: normal respiratory effort Assessment & Plan Assessment and plan (1) Colon cancer screening: Status: Acute Plan We discussed the risks and benefits of colonoscopy for colon cancer screening and he would like to proceed. Time-Based Coding :: [TOTAL MINUTES] spent with patient and on the chart (including review of chart, obtaining history, exam, reviewing outside data, placing orders, documenting exam and treatment plan, and counseling patient) on [DATE].
[2024-06-17 08:10] VITALS: BP 113/80; PULSE 89; RESP 16; O2SAT 94
[2024-06-17 08:11] VITALS: BP 109/78; PULSE 91; RESP 15; TEMP 36.2; O2SAT 94
--- NOTE | 2024-06-17 08:11 | PM.OP.COLON ---
Operative Date/Time/Diagnoses Date of procedure: 06/17/24 Time of procedure: 08:11 Pre-op diagnosis: Colon cancer screening Post-op diagnosis: same Procedure & Clinicians Study performed: Colonoscopy Same procedure as scheduled: Yes Surgeon: Tomer Munoz Procedure Notes Procedure in detail: Surgeon: Tomer Munoz MD Anesthesia: Elaine Vargas DO Procedure: The patient was brought to the endoscopy suite, placed in left lateral decubitus position. The patient was connected to monitoring devices. A time-out was performed. Sedation was administered. Once the patient was adequately sedated, a digital rectal exam was performed and was normal. The scope was then inserted and advanced to the cecum where the appendiceal orifice was identified and photographed. The scope was then slowly withdrawn over greater than 6 minutes. The mucosa was thoroughly inspected. No abnormalities were found. The scope was retroflexed in the rectum. The scope was straightened and removed. The patient was awakened and brought to recovery. Scope withdrawal time: 8 minutes Sedation time: 13 minutes EBL: 0 Findings: Normal colon Post-procedure Recommendations: Colonoscopy in 10 years Disposition: PACU
[2024-06-17 08:18] VITALS: BP 112/81; PULSE 82; RESP 12; O2SAT 94
[2024-06-17 08:22] VITALS: BP 133/81; PULSE 84; TEMP 36.8; O2SAT 94
[2024-06-17 08:27] VITALS: BP 137/81; PULSE 92; RESP 22; TEMP 36.8; O2SAT 95
== END 2024-06-17 08:39 | disposition home or self-care (01) ==
PROVIDERS: PCP Family Medicine; Referring Provider Surgery; Visit Provider Surgery
PROC: 0DJD8ZZ Inspection of Lower Intestinal Tract, Via Natural or Artificial Opening Endoscopic (ICD-10-PCS; CPT 45378; principal; 2024-06-17 07:45)
DX: Z12.11 Encounter for screening for malignant neoplasm of colon (principal)
CPT/HCPCS: 45378; J2704

== ENCOUNTER → 2024-11-29 15:07 | Outpatient (CLI) | payer OTHER, SELFPAY ==
[2024-01-28 01:09] VITALS: BMI 29.5
--- NOTE | 2024-11-29 15:09 | DI.RAD.S_ITS ---
PROCEDURE: XR CHEST 2V INDICATIONS: COUGH TECHNIQUE: 2 views of the chest were acquired. COMPARISON: [facility], , CHEST 2 VIEW, 09/04/2014, 11:36. FINDINGS: Heart, mediastinum and pulmonary vascular: Heart is normal in size and configuration. Mediastinum is unremarkable. Pulmonary vascular is normal. Lungs: Clear Pleural spaces: Normal-no effusions or pneumothorax. Bones and soft tissues: Normal IMPRESSION: Normal chest. Dictated by: Michael Denis M.D. on 11/30/2024 at 11:43 Approved by: Michael Denis M.D. on 11/30/2024 at 11:44
== END ==
PROVIDERS: PCP Family Medicine; Referring Provider Family Medicine; Visit Provider Family Medicine
DX: R05.1 Acute cough (principal)
CPT/HCPCS: 71046